=== PATIENT | male | born 1965 | race Caucasian/White ===

== ENCOUNTER 2017-01-13 12:30 | Outpatient (CLI) ==
--- NOTE | 2017-01-13 13:56 | DI ---
EXAM: Chest two view, frontal and lateral views. HISTORY: Cough. Bronchitis. Flu-like symptoms. COMPARISON: None available. FINDINGS: The heart size is normal. There is no pulmonary vascular congestion. The lungs are bandar r. No pleural effusion or pneumothorax is seen. No acute osseous abnormality identified. IMPRESSION: No acute cardiopulmonary process.
== END 2017-01-13 12:31 | disposition home or self-care (01) ==
LOC: RAD 12:30
PROVIDERS: ATTEND Family Medicine
DX: R68.89 Other general symptoms and signs (principal); J32.9 Chronic sinusitis, unspecified; J40 Bronchitis, not specified as acute or chronic; D70.1 Agranulocytosis secondary to cancer chemotherapy; C71.1 Malignant neoplasm of frontal lobe

== ENCOUNTER 2017-11-24 07:48 | Outpatient (CLI) | END 2017-11-24 07:49 | disposition left against medical advice (07) | LOC: AMBL 07:48 | PROVIDERS: ATTEND Emergency Medicine | DX: R53.1 Weakness (principal); J11.1 Influenza due to unidentified influenza virus with other respiratory manifestations ==

== ENCOUNTER 2017-12-11 12:04 | Outpatient (CLI) | END 2017-12-11 12:05 | disposition short-term general hospital (02) | LOC: AMBL 12:04 | PROVIDERS: ATTEND Family Medicine | DX: R29.6 Repeated falls (principal); C71.9 Malignant neoplasm of brain, unspecified; F79 Unspecified intellectual disabilities; I10 Essential (primary) hypertension; Z79.899 Other long term (current) drug therapy ==

== ENCOUNTER 2018-06-17 18:31 | Emergency (ER) ==
[2018-06-17 18:38] VITALS: BP 130/85; TEMP 98.6; BMI 30.9
[2018-06-17] MEDS ORDERED: DECADRON 4 MG/ML SDV IM STA (19:30)
[2018-06-17] MEDS ORDERED: BENADRYL PO STA (19:30)
--- NOTE | 2018-06-17 20:40 | ED.PDOC ---
General ED Provider: Dr. JENNIFER PATIÑO Chief Complaint: Rash Stated Complaint: Noted rash all over that is itchy Time Seen by Physician: 19:00 Mode of Arrival: Walk-In Information Source: Patient Primary Care Provider: MARY ANN KIRK Nursing and Triage Documentation Reviewed and Agree: Yes Does patient meet sepsis criteria?: Yes If yes, has appropriate treatment been initiated?: No System Inflammatory Response Syndrome: Not Applicable Sepsis Protocol: For patient's 13 years and over: Temp is 96.8 and below OR 101 and greater Pulse >90 BPM Resp >20/minute Acutely Altered Mental Status Are patient's symptoms suggestive of a new infection, such as: -Pneumonia -Skin, Soft Tissue -Endocarditis -UTI -Bone, Joint Infection -Implantable Device -Acute Abdominal Infection -Wound Infection -Meningitis -Blood Stream Catheter Infection -Unknown Skin Complaint Exam - Skin Rash/Itching Complaint/Exam Onset/Duration: 1 day Symptoms Are: Still present Initial Severity: Moderate Current Severity: Moderate Location: neck, chest, Abdomen, upper and lower extreimites Potential Exposures: Reports: Other (New detergents ) Prior Treatment: nothing Aggravating: Reports: None Alleviating: Reports: None Associated Signs and Symptoms: Denies: Difficulty breathing, Fever, Chills Skin Findings: Present: Pustules, Vesicles, Lesions Differential Diagnoses: Allergic Reaction, Contact Dermatitis, Viral Exanthema Review of Systems - Review Of Systems Constitutional: Reports: No symptoms Eyes: Reports: No symptoms Ears, Nose, Mouth, Throat: Reports: No symptoms Respiratory: Reports: No symptoms Cardiac: Reports: No symptoms GI: Reports: No symptoms : Reports: No symptoms Musculoskeletal: Reports: No symptoms Skin: Reports: Rash Neurological: Reports: No symptoms Endocrine: Reports: No symptoms Hematologic/Lymphatic: Reports: No symptoms All Other Systems: Reviewed and Negative Past Medical History - Past Medical History Previously Healthy: Yes Endocrine: Reports: None Cardiovascular: Reports: Hypertension Respiratory: Reports: None Hematological: Reports: None Gastrointestinal: Reports: None Genitourinary: Reports: None Neuro/Psych: Reports: Seizure Musculoskeletal: Reports: None Cancer: Reports: Other (brain tumor ) - Surgical History General Surgical History: Reports: Other (brain tumor removed 1 yr ago) - Family History Family History: Reports: Unknown - Social History Smoking Status: Never smoker Hx Substance Use: No Alcohol Screening: None Physical Exam - Physical Exam Appearance: Ill-appearing, No pain distress, Well-nourished Ill-appearing: Mild Eyes: BRISSA, EOMI, Conjunctiva clear ENT: Nose normal, Oropharynx normal Neck: Supple Respiratory: Airway patent, Breath sounds clear, Breath sounds equal, Respirations nonlabored Cardiovascular: RRR, Pulses normal, No rub, No murmur GI/: Soft, Nontender, No masses, Bowel sounds normal, No Organomegaly Musculoskeletal: Normal strength, ROM intact, No edema, No calf tenderness Skin: Warm, Dry Neurological: Sensation intact, Motor intact, Reflexes intact, Cranial nerves intact, Alert, Oriented Psychiatric: Affect appropriate, Mood appropriate Critical Care Note - Critical Care Note Total Time (mins): 0 Course - Course Orders, Labs, Meds: Orders Category Date Time Status Dexamethasone 4 mg/ml Inj [Decadron 4 mg/ml Sdv] MEDS 06/17/18 19:30 Discontinued 8 mg IM ONCE STA Diphenhydramine Liquid [Benadryl] MEDS 06/17/18 19:30 Discontinued 50 mg PO ONCE STA Medications Discontinued Medications Generic Name Dose Route Start Last Admin Trade Name Freq PRN Reason Stop Dose Admin Dexamethasone Sodium Phosphate 8 mg 06/17/18 19:30 06/17/18 19:57 Decadron 4 Mg/Ml Sdv IM 06/17/18 19:31 8 mg ONCE STA Administration Diphenhydramine HCl 50 mg 06/17/18 19:30 06/17/18 19:58 Benadryl PO 06/17/18 19:31 50 mg ONCE STA Administration Vital Signs: Temp Pulse Resp BP Pulse Ox 06/17/18 18:31 98.6 F 107 H 20 130/85 95 Departure - Departure Time of Disposition: 20:43 Disposition: HOME SELF-CARE Discharge Problem: Pruritic rash Contact dermatitis Qualifiers: Contact dermatitis type: allergic Contact dermatitis trigger: other chemical product Qualified Code(s): L23.5 - Allergic contact dermatitis due to other chemical products Instructions: Contact Dermatitis (ED) Condition: Stable Pt referred to PMD for follow-up: Yes IPMP verified?: No Additional Instructions: Take medications as prescribed Follow up with PCP in 3 -5 days Prescriptions: Hydroxyzine HCl [Atarax] 25 mg PO TID PRN #30 tablet PRN Reason: Itching Prednisone 20 mg PO DAILYWM #5 tablet Allergies/Adverse Reactions: Allergies No Known Allergies Allergy (Unverified 06/17/18 18:39) Home Medications: Ambulatory Orders Aspirin [Aspirin EC] 81 mg PO DAILY 06/17/18 Captopril 12.5 mg PO BID 06/17/18 Clorazepate Dipotassium [Tranxene T-Tab] 7.5 mg PO TID 06/17/18 Hydroxyzine HCl [Atarax] 25 mg PO TID PRN #30 tablet 06/17/18 Levetiracetam [Keppra] 1,000 mg PO BID 06/17/18 Oxcarbazepine [Trileptal] 150 mg PO TID 06/17/18 Prednisone 20 mg PO DAILYWM #5 tablet 06/17/18 Tiagabine HCl [Gabitril] 4 mg PO DIRECTED 06/17/18
== END 2018-06-17 20:54 | disposition home or self-care (01) ==
LOC: ED 18:31
DX: L23.5 Allergic contact dermatitis due to other chemical products (principal)
CPT/HCPCS: 96372; 99282

== ENCOUNTER 2018-06-19 22:57 | Outpatient (CLI) | END 2018-06-19 23:14 | disposition short-term general hospital (02) | LOC: AMBL 22:57 | PROVIDERS: ATTEND Internal Medicine Geriatric Medicine | DX: R53.1 Weakness (principal); R41.82 Altered mental status, unspecified; R53.83 Other fatigue; W19.XXXA Unspecified fall, initial encounter; Z85.841 Personal history of malignant neoplasm of brain; Z98.890 Other specified postprocedural states ==

== ENCOUNTER 2020-10-03 08:43 | Inpatient (IN) ==
--- NOTE | 2020-10-03 08:49 | ED.PDOC ---
General ED Provider: Dr. NICOL VELA Chief Complaint: Weakness Primary Care Provider: MARY ANN KIRK Sepsis Protocol: For patient's 13 years and over: Temp is 96.8 and below OR 101 and greater Pulse >90 BPM Resp >20/minute Acutely Altered Mental Status Are patient's symptoms suggestive of a new infection, such as: -Pneumonia -Skin, Soft Tissue -Endocarditis -UTI -Bone, Joint Infection -Implantable Device -Acute Abdominal Infection -Wound Infection -Meningitis -Blood Stream Catheter Infection -Unknown Miscellaneous Complaint Exam Physical Examination Complaint/Exam Onset/Duration: one hour Symptoms Are: Still present Timing: Constant Episodes Lasting: Minutes Initial Severity: Moderate Current Severity: Moderate Location: Pt has evidence of contusion on forehead and nose. Fell this am. seizure? Character: Bloody lacertions and contusions forehead and nasal bridge. Aggravating: nothing Alleviating: nothing Associated Signs and Symptoms: pt's speaking "slow" .. hx brain tumor w residual seizure activity. Related History: Reports No other known history Specific Findings: bloody contusions/lacerations forehead, nose. Differential Diagnoses: contusions/lacerations forehead, nose s/p seizure as per patient. [facility] Social History Smoking and tobacco status: Never smoker Physical Exam Physical Exam Appearance: Reports Other Ill-appearing: None Pain Distress: None Eyes: Reports BRISSA, EOMI and Conjunctiva clear ENT: Reports Ears normal, Oropharynx normal and Other Neck: Supple Respiratory: Reports Airway patent, Breath sounds clear and Breath sounds equal Cardiovascular: Reports RRR and Pulses normal GI/: Reports Soft and Bowel sounds hypoactive Musculoskeletal: Reports Limited ROM and Limited strength Skin: Reports Warm, Dry and Pale Neurological: Reports Other Psychiatric: Reports Depressed and Other Course Course Orders, Labs, Meds: Orders Category Date Time Status NPO REMINDER: IMAGING ONCE CARE 10/03/20 08:51 Active COMPREHENSIVE METABOLIC PANEL Stat LAB 10/03/20 09:[address] HEAD W/WO CONTRAST Stat RADS 10/03/20 08:50 Ordered Vital Signs: Temp Pulse Resp BP Pulse Ox 10/03/20 08:45 96.9 F L 103 H 20 97/47 L 97 Discharge Plan Discharge Prescriptions: No Action oxcarbazepine 150 MG tablet 150 mg PO TID RF: 0 tiagabine [Gabitril] 4 MG tablet 4 mg PO DIRECTED RF: 0 aspirin 81 MG tablet,delayed release (DR/EC) 81 mg PO DAILY RF: 0 captopril 12.5 MG tablet 12.5 mg PO BID RF: 0 clorazepate dipotassium [Tranxene T-Tab] 7.5 MG tablet 7.5 mg PO TID RF: 0 levetiracetam [Keppra] 1,000 MG tablet 1,000 mg PO BID RF: 0 prednisone 20 MG tablet 20 mg PO DAILYWM Qty: 5 RF: 0 hydroxyzine HCl 25 MG tablet 25 mg PO TID PRN (Reason: Itching ) Qty: 30 RF: 0 ED Provider: NICOL VELA Physician Progress Note: Pt has hx of surgery to remove brain tumor, two years ago, according to pt. Pt's mentation is slow, but oriented sfs place, his condition, recollection of "feeling funny" before his seizure. Pt suffers from loss of balance, gait difficulty and generalized weakness. His L side is weaker than R. Pt follows up with NeuroSurgeon q 3 months. ENT normal except for dryness, lips cracked, tongue dry. Two contusions w bloody lacerations on forehead and nasal bridge. Steri strips applied. Respirations normal, no abd pain. Sensation normal. Finger-nose: unable. Heel- acuña: unable. Pt's mood and affect: resignation. []
[2020-10-03 09:53] LABS: ALANINE AMINOTRANSFERASE 32.3 U/L (0-50); ALBUMIN 4.49 g/dL (3.5-5.0); ALKALINE PHOSPHATASE 162.2 U/L (38-126); ASPARTATE AMINO TRANSFERASE 134.6 U/L (17-59); BILIRUBIN,TOTAL 0.53 mg/dL (0.2-1.3); BLOOD UREA NITROGEN 28.4 mg/dL (9-20); CALCIUM 8.99 mg/dL (8.4-10.2); CARBON DIOXIDE 22.8 mmol/L (22-30.0); CHLORIDE 100.2 mmol/L (98-107); CREATININE 1.84 mg/dL (0.60-1.10); GLUCOSE 147.7 mg/dL (74-106); POTASSIUM 3.35 mmol/L (3.5-5.1); SODIUM 136.4 mmol/L (134.5-145); TOTAL PROTEIN 8.14 g/dL (6.3-8.2)
--- NOTE | 2020-10-03 10:05 | ED.PDOC ---
General ED Provider: Dr. NICOL VELA Chief Complaint: Weakness Stated Complaint: Fall with head, face injuries. Fall 2/2 dizziness/ dehydration. Time Seen by Physician: 08:43 Mode of Arrival: Stretcher Information Source: Patient and EMT Primary Care Provider: MARY ANN QUINONES Nursing and Triage Documentation Reviewed and Agree: Yes Does patient meet sepsis criteria?: No System Inflammatory Response Syndrome: Not Applicable Sepsis Protocol: For patient's 13 years and over: Temp is 96.8 and below OR 101 and greater Pulse >90 BPM Resp >20/minute Acutely Altered Mental Status Are patient's symptoms suggestive of a new infection, such as: -Pneumonia -Skin, Soft Tissue -Endocarditis -UTI -Bone, Joint Infection -Implantable Device -Acute Abdominal Infection -Wound Infection -Meningitis -Blood Stream Catheter Infection -Unknown Miscellaneous Complaint Exam Physical Examination Complaint/Exam Onset/Duration: one hour prior to ER Symptoms Are: Resolved Timing: Intermittent Episodes Lasting: Minutes Initial Severity: Moderate Current Severity: Moderate Location: forehead, nasal bridge Character: bloody lacerations / contusions 2/2 seizure, fall. Aggravating: nothing Alleviating: nothing Associated Signs and Symptoms: slow verbal responses and mentation 2/2 brain tumor surgery Related History: Reports No other known history Specific Findings: bloody lacerations 2/2 contusions forehead, nasal bridge Differential Diagnoses: contusions, lacerations 2/2 fall s/p seizure activity Review of Systems Review Of Systems Constitutional: Reports Weakness Eyes: Reports No symptoms Ears, Nose, Mouth, Throat: Reports No symptoms Respiratory: Reports No symptoms Cardiac: Reports No symptoms GI: Reports No symptoms : Reports No symptoms Musculoskeletal: Reports No symptoms Skin: Reports Other Neurological: Reports Weakness Endocrine: Reports No symptoms Hematologic/Lymphatic: Reports No symptoms All Other Systems: Reviewed and Negative [facility] Social History Smoking and tobacco status: Never smoker Physical Exam Physical Exam Appearance: Reports Other Ill-appearing: None Pain Distress: None Eyes: Reports BRISSA and EOMI ENT: Reports Ears normal and Other Neck: Supple Respiratory: Reports Airway patent and Breath sounds clear Cardiovascular: Reports RRR GI/: Reports Soft, Nontender and Bowel sounds hypoactive Musculoskeletal: Reports Limited ROM and Limited strength Skin: Reports Warm, Dry and Pale Neurological: Reports Sensation intact and Oriented Psychiatric: Reports Other Interpretation Radiology Interpretation Radiology Interpretation By: Radiologist Radiology Results: No acute changes Exam Interpreted: CT Scan Xray Comments: frontal lobe encephalomalacia 2/2 tumor surgery. No acute changes. No bleed Physician Notification Case Discussed Physician Notified: Dr. Quinones Time of Notification: 11:30 Critical Care Note Critical Care Note Total Critical Care Time (mins): 0 Course Course Hematology/Chemistry: 10/03/20 14:05 10/03/20 14:05 Orders, Labs, Meds: Lab Review 10/03/20 10/03/20 10/03/20 09:30 12:11 13:13 WBC 4.16 L RBC 4.01 L Hgb 13.8 L Hct 38.1 L MCV 95.0 H MCH 34.4 H MCHC 36.2 H RDW Coeff of [place] 11.8 Plt Count 205 Immature Gran % (Auto) 0.5 Neut % (Auto) 81.2 H Lymph % (Auto) 9.6 L Cottle % (Auto) 8.7 Eos % (Auto) 0.0 Baso % (Auto) 0.0 Neut # (Auto) 3.4 Lymph # (Auto) 0.4 L Cottle # (Auto) 0.4 Eos # (Auto) 0.0 Baso # (Auto) 0.0 Immature Gran # (Auto) 0.0 Sodium 136.4 Potassium 3.35 L Chloride 100.2 Carbon Dioxide 22.8 Anion Gap 16.75 BUN 28.4 H Creatinine 1.84 H Estimated GFR (MDRD) 39.00 BUN/Creatinine Ratio 15.43 Glucose 147.7 H Calcium 8.99 Total Bilirubin 0.53 AST 134.6 H ALT 32.3 Alkaline Phosphatase 162.2 H Total Protein 8.14 Albumin 4.49 Globulin 3.65 Albumin/Globulin Ratio 1.23 Stl Occult Blood (IFOB) Negative Stool Occult Blood #2 No specimen received Stool Occult Blood #3 No specimen received 10/03/20 10/03/20 14:05 14:05 WBC 3.69 L RBC 4.06 L Hgb 13.7 L Hct 38.6 L MCV 95.1 H MCH 33.7 H MCHC 35.5 H RDW Coeff of [place] 11.9 Plt Count 217 Immature Gran % (Auto) 0.3 Neut % (Auto) 80.9 H Lymph % (Auto) 8.7 L Cottle % (Auto) 9.8 Eos % (Auto) 0.0 Baso % (Auto) 0.3 Neut # (Auto) 3.0 Lymph # (Auto) 0.3 L Cottle # (Auto) 0.4 Eos # (Auto) 0.0 Baso # (Auto) 0.0 Immature Gran # (Auto) 0.0 Sodium 134.7 Potassium 3.12 L Chloride 101.8 Carbon Dioxide 21.6 L Anion Gap 14.42 BUN 27.8 H Creatinine 1.40 H Estimated GFR (MDRD) 53.00 BUN/Creatinine Ratio 19.85 Glucose 131.4 H Calcium 8.36 L Total Bilirubin 0.43 AST 151.5 H ALT 31.7 Alkaline Phosphatase 138.8 H Total Protein 7.46 Albumin 4.03 Globulin 3.43 Albumin/Globulin Ratio 1.17 Stl Occult Blood (IFOB) Stool Occult Blood #2 Stool Occult Blood #3 Orders Category Date Time Status ADMIT PATIENT INPATIENT .TO [facility] (NON-MONITORED ADMISSION 10/03/20 14:52 Active BED) NPO REMINDER: IMAGING ONCE CARE 10/03/20 08:51 Active CBC W/ AUTO DIFF Stat LAB 10/03/20 12:11 Completed CBC W/ AUTO DIFF Stat LAB 10/03/20 14:05 Completed COMPREHENSIVE METABOLIC PANEL Stat LAB 10/03/20 09:30 Completed COMPREHENSIVE METABOLIC PANEL Stat LAB 10/03/20 14:05 Completed OCCULT BLOOD, STOOL Stat LAB 10/03/20 13:13 Completed Potassium Chloride [Potassium Chloride 10 Meq/100 ml MEDS 10/03/20 11:08 Discontinued Premix] 10 meq in 100 ml IV ONCE Sodium Chloride 0.9% [Sodium Chloride] 1,000 ml MEDS 10/03/20 11:[address] HEAD W/O CONTRAST Stat RADS 10/03/20 10:[address] HIP RIGHT WITHOUT CONTRAST Stat RADS 10/03/20 13:17 Completed KNEE, RIGHT 4 VIEWS Stat RADS 10/03/20 13:15 Completed Medications Discontinued Medications Generic Name Dose Route Start Last Admin Trade Name Freq PRN Reason Stop Dose Admin Sodium Chloride 1,000 mls @ 1,000 mls/hr 10/03/20 11:06 10/03/20 11:42 Sodium Chloride IV 10/03/20 12:05 500 mls/hr BOLUS STA Administration Potassium Chloride 10 meq in 100 mls @ 100 mls/hr 10/03/20 11:08 10/03/20 11:41 Potassium Chloride 10 Meq/100 Ml Premix IV 10/03/20 12:07 100 mls/hr ONCE STA Administration Vital Signs: Temp Pulse Resp BP Pulse Ox 10/03/20 08:45 96.9 F L 103 H 20 97/47 L 97 Discharge Plan Discharge Patient Disposition: ADMITTED INPATIENT Discharge Problem: Admitted with dehydration Hypotension Qualifiers: Hypotension type: hypotension due to hypovolemia Qualified Code(s): I95.89 - Other hypotension Fall as cause of accidental injury in home as place of occurrence Qualifiers: Encounter type: initial encounter Qualified Code(s): W19.XXXA - Unspecified fall, initial encounter ED Provider: NICOL VELA Condition: Stable Physician Progress Note: 0900:Mentation and speaking slow, 2/2 brain tumor surgery, which pt states he underwent 2 years ago. ENT: dryness. Lacerations and contusions nasal bridge and forehead. pulses weak, RRR, respirations nl, not labored, chest expansion normal bilaterally. abd soft, nontender, no rebound. Pt unable to heel-acuña or finter-nose. EMS reports LLE weaker than RLE LAB: GFR 39 (cut off: 30) Head CT w contrast cancelled. CT: encephalomalacia w/w brain tumor surgery. No acute changes. No bleed. Orthostatic VS: Supine: HR 98, 115/91; Sitting HR 113, 97/78; Standing Pt feels faint, no BP recorded. 98% room air. 11:[address] Quinones. Will work up pt for GI bleed. IVF NaCl w 10 mEq KCl ordered since Creatinine, BUN and Glucose elevated and Potassium low. Plan to reorder CMP after IVF. Rectal exam: no visible blood. Sample to lab. 12:50 Pt more alert. 50% IVF has run in. 13:15 Pt much more alert and communicative. Dad in room and states so, as well. 14:[address] Quinones, who is admitting pt to his service. []
--- NOTE | 2020-10-03 10:44 | CT ---
EXAM: CT head without contrast. HISTORY: Seizure. Fall. Previous brain tumor resection. COMPARISON: None available. TECHNIQUE: Multiple axial images of the brain were obtained from the skull base through the vertex w ithout intravenous contrast. Multiplanar reformats were provided. FINDINGS: There is no intracranial hemorrhage or extraaxial collection. Right parietal craniotomy changes noted with encephalomalacia in the underlying right frontal vertex. The durán-white different iation is maintained without evidence for acute large vascular territory infarction. There are areas of periventricular and subcortical white matter low attenuation. The cortical sulci and cerebral ve ntricles are symmetrically enlarged. The basal cisterns are well visualized. There is no hydrocepha madhu, mass effect, or midline shift. The paranasal sinuses and mastoid air cells are clear. The calv arium is intact. IMPRESSION: 1. No acute intracranial abnormality. 2. Previous right craniotomy and right frontal lobe encephalomalacia. 3. Chronic small vessel ischemic changes and atrophy.
[2020-10-03] MEDS ORDERED: SODIUM CHLORIDE 1,000 ML IV STA (11:06)
[2020-10-03] MEDS ORDERED: POTASSIUM CHLORIDE 10 MEQ/100 ML PREMIX 10 MEQ/100 ML BAG IV STA ×2 (11:08→15:38)
[2020-10-03 12:16] LABS: HEMATOCRIT 38.1 % (42.0-52.0); HEMOGLOBIN 13.8 g/dl (14.0-18.0); IMMATURE GRANULOCYTE % (AUTO) 0.5 % (0.0-5.0); LYMPHOCYTES # (AUTO) 0.4 K/uL (0.60-3.4); LYMPHOCYTES % (AUTO) 9.6 (10.0-50.0); MEAN CORPUSCULAR HEMOGLOBIN 34.4 pg (27.0-31.0); MEAN CORPUSCULAR HGB CONC 36.2 (31.8-35.4); MONOCYTES # (AUTO) 0.4 K/uL (0.4-2.0); MONOCYTES % (AUTO) 8.7 (0-10); NEUTROPHILS # (AUTO) 3.4 K/ul (2.0-6.9); NEUTROPHILS % (AUTO) 81.2 % (42.2-75.2); PLATELET COUNT 205 10^3/uL (140-440); RDW COEFFICIENT OF VARIATION 11.8 % (11.6-14.8); RED BLOOD COUNT 4.01 10^6/ul (4.70-6.10); WHITE BLOOD COUNT 4.16 K/ul (4.2-10.2)
--- NOTE | 2020-10-03 13:43 | DI ---
EXAM: RIGHT KNEE. HISTORY: Fall, knee abrasion and pain. FINDINGS: Right knee four view. No fracture or dislocation is seen. 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 No joint effusion. No soft tissue radiopaque foreign body. IMPRESSION: 1. No fracture or dislocation. Arthritic changes.
--- NOTE | 2020-10-03 13:56 | CT ---
EXAM: CT right hip without contrast. HISTORY: Initial presentation for right hip pain following a fall. COMPARISON: None available. TECHNIQUE: Multiple axial images of the right hip were obtained without intravenous contrast. Image s were reformatted in the coronal and sagittal plane. FINDINGS: Bone mineralization is normal. No fracture or dislocation identified. Joint space is maintained. O sseous destruction detected. There is mild lateral subcutaneous edema in the right thigh. No fluid collection is seen. Limited images of the lower pelvis are unremarkable. Atherosclerotic calcifications are noted. IMPRESSION: No fracture or dislocation.
[2020-10-03 14:06] LABS: OCCULT BLOOD SAMPLE 1 NEGATIVE (NEGATIVE); OCCULT BLOOD SAMPLE 2 NO SPECIMEN RECEIVED (NEGATIVE); OCCULT BLOOD SAMPLE 3 NO SPECIMEN RECEIVED (NEGATIVE)
[2020-10-03 14:13] LABS: BASOPHILS % (AUTO) 0.3 % (0.0-3.0); HEMATOCRIT 38.6 % (42.0-52.0); HEMOGLOBIN 13.7 g/dl (14.0-18.0); IMMATURE GRANULOCYTE % (AUTO) 0.3 % (0.0-5.0); LYMPHOCYTES # (AUTO) 0.3 K/uL (0.60-3.4); LYMPHOCYTES % (AUTO) 8.7 (10.0-50.0); MEAN CORPUSCULAR HEMOGLOBIN 33.7 pg (27.0-31.0); MEAN CORPUSCULAR HGB CONC 35.5 (31.8-35.4); MEAN CORPUSCULAR VOLUME 95.1 fl (80.0-94.0); MONOCYTES # (AUTO) 0.4 K/uL (0.4-2.0); MONOCYTES % (AUTO) 9.8 (0-10); NEUTROPHILS % (AUTO) 80.9 % (42.2-75.2); PLATELET COUNT 217 10^3/uL (140-440); RDW COEFFICIENT OF VARIATION 11.9 % (11.6-14.8); RED BLOOD COUNT 4.06 10^6/ul (4.70-6.10); WHITE BLOOD COUNT 3.69 K/ul (4.2-10.2)
[2020-10-03 14:26] LABS: ALANINE AMINOTRANSFERASE 31.7 U/L (0-50); ALBUMIN 4.03 g/dL (3.5-5.0); ALKALINE PHOSPHATASE 138.8 U/L (38-126); ASPARTATE AMINO TRANSFERASE 151.5 U/L (17-59); BILIRUBIN,TOTAL 0.43 mg/dL (0.2-1.3); BLOOD UREA NITROGEN 27.8 mg/dL (9-20); CALCIUM 8.36 mg/dL (8.4-10.2); CARBON DIOXIDE 21.6 mmol/L (22-30.0); CHLORIDE 101.8 mmol/L (98-107); CREATININE 1.4 mg/dL (0.60-1.10); GLUCOSE 131.4 mg/dL (74-106); POTASSIUM 3.12 mmol/L (3.5-5.1); SODIUM 134.7 mmol/L (134.5-145); TOTAL PROTEIN 7.46 g/dL (6.3-8.2)
[2020-10-03 16:49] VITALS: BMI 32.7
[2020-10-03] MEDS: SODIUM CHLORIDE 1,000 ML IV SCH (17:40)
[2020-10-03] MEDS: KEPPRA PO SCH (21:04)
[2020-10-03] MEDS: MICRO-K CAP PO SCH (21:05)
[2020-10-03] MEDS: TRILEPTAL PO SCH (21:05)
[2020-10-04] MEDS: SODIUM CHLORIDE 1,000 ML IV SCH ×2 (03:54→14:19)
[2020-10-04 07:55] LABS: BLOOD UREA NITROGEN 20.4 mg/dL (9-20); CALCIUM 7.92 mg/dL (8.4-10.2); CARBON DIOXIDE 24.5 mmol/L (22-30.0); CHLORIDE 101.4 mmol/L (98-107); CREATININE 0.97 mg/dL (0.60-1.10); GLUCOSE 104.1 mg/dL (74-106); POTASSIUM 2.97 mmol/L (3.5-5.1); SODIUM 133.3 mmol/L (134.5-145)
[2020-10-04 08:01] LABS: EOSINOPHILS # (AUTO) 0.1 K/ul (0.0-0.7); EOSINOPHILS % (AUTO) 1.9 % (0.0-7.0); HEMATOCRIT 33.7 % (42.0-52.0); HEMOGLOBIN 11.8 g/dl (14.0-18.0); IMMATURE GRANULOCYTE % (AUTO) 0.4 % (0.0-5.0); LYMPHOCYTES # (AUTO) 0.3 K/uL (0.60-3.4); LYMPHOCYTES % (AUTO) 12.2 (10.0-50.0); MEAN CORPUSCULAR HEMOGLOBIN 33.7 pg (27.0-31.0); MEAN CORPUSCULAR VOLUME 96.3 fl (80.0-94.0); MONOCYTES # (AUTO) 0.3 K/uL (0.4-2.0); MONOCYTES % (AUTO) 9.5 (0-10); PLATELET COUNT 193 10^3/uL (140-440); RDW COEFFICIENT OF VARIATION 11.9 % (11.6-14.8); WHITE BLOOD COUNT 2.63 K/ul (4.2-10.2)
[2020-10-04] MEDS: TRILEPTAL PO SCH ×3 (08:28→20:24)
[2020-10-04] MEDS: MICRO-K CAP PO SCH ×3 (08:29→22:23)
[2020-10-04] MEDS: KEPPRA PO SCH ×2 (08:29→20:24)
[2020-10-04] MEDS: TIAGABINE 4 MG PO SCH ×4 (08:30→20:25)
[2020-10-04] MEDS: SILVADENE CREAM TP SCH ×2 (15:16→20:26)
[2020-10-04 16:39] LABS: BILIRUBIN,URINE Negative (NEGATIVE); CLARITY,URINE Clear (CLEAR); COLOR,URINE Yellow (YELLOW); GLUCOSE, URINE (UA) Negative (NEGATIVE); KETONES,URINE Trace (NEGATIVE); LEUKOCYTE ESTERASE ,URINE Negative (NEGATIVE); NITRITE,URINE Negative (NEGATIVE); PH,URINE 5.5 (5-9); PROTEIN,URINE 2+ (NEGATIVE); URINE, BLOOD 2+ (NEGATIVE)
[2020-10-04 16:44] LABS: AMORPHOUS SEDIMENT,UR 1+ (NOT PRESENT); BACTERIA,URINE TRACE (NOT PRESENT); MUCUS,URINE TRACE (NOT PRESENT); RENAL EPITHELIAL CELLS,URINE 0-2 (NOT PRESENT); SQUAMOUS EPITHELIAL CELL,UR 0-2 (0-5); URINE WBC, MICROSCOPIC 0-2 (0-2)
[2020-10-04] MEDS: SODIUM CHLORIDE 0.9%-KCL 20 MEQ 1,000 ML IV SCH (22:22)
[2020-10-05 05:50] LABS: BLOOD UREA NITROGEN 16.5 mg/dL (9-20); CALCIUM 8.14 mg/dL (8.4-10.2); CHLORIDE 102.3 mmol/L (98-107); GLUCOSE 105.2 mg/dL (74-106); POTASSIUM 3.66 mmol/L (3.5-5.1); SODIUM 133.7 mmol/L (134.5-145)
[2020-10-05 06:57] LABS: FOLATE > 20.00 ng/mL
[2020-10-05] MEDS: MICRO-K CAP PO SCH ×2 (08:21→17:08)
[2020-10-05] MEDS: KEPPRA PO SCH ×2 (08:21→20:40)
[2020-10-05] MEDS: SILVADENE CREAM TP SCH ×2 (08:22→20:41)
[2020-10-05] MEDS: TIAGABINE 4 MG PO SCH ×3 (08:22→20:43)
[2020-10-05] MEDS: TRILEPTAL PO SCH ×3 (09:29→20:40)
[2020-10-05] MEDS: SODIUM CHLORIDE 0.9%-KCL 20 MEQ 1,000 ML IV SCH (18:16)
[2020-10-06 05:51] LABS: BLOOD UREA NITROGEN 14.2 mg/dL (9-20); CALCIUM 8.1 mg/dL (8.4-10.2); CARBON DIOXIDE 24.5 mmol/L (22-30.0); CHLORIDE 104.4 mmol/L (98-107); CREATININE 0.87 mg/dL (0.60-1.10); GLUCOSE 97.1 mg/dL (74-106); POTASSIUM 3.53 mmol/L (3.5-5.1); SODIUM 135.3 mmol/L (134.5-145)
[2020-10-06] MEDS: TRILEPTAL PO SCH ×3 (10:12→21:05)
[2020-10-06] MEDS: KEPPRA PO SCH ×2 (10:12→21:05)
[2020-10-06] MEDS: MICRO-K CAP PO SCH ×2 (10:13→17:02)
[2020-10-06] MEDS: SILVADENE CREAM TP SCH ×2 (10:14→21:09)
[2020-10-06] MEDS: TIAGABINE 4 MG PO SCH ×3 (10:33→21:07)
--- NOTE | 2020-10-06 11:49 | RS.PTINEVL ---
Subjective - Patient information Date of Evaluation: 10/06/20 Date of Arrival on Unit: 10/03/20 Admitted From:: Home Diagnosis: falls at home, gait difficulty, impaired balance, muscle weakness Usual Living Arrangement: With Parent Living Arrangement Comments: lives with parents, father cares for him and takes care of the mother who has dementia. Home Environment: House, Stairs (few), Rail Medical History: Hypertension, Arthritis, Cancer (brain tumors) Medical History Comments:: seizures LATEX ALLERGY?: No Surgical History Comments:: R craniotomy Medications: see chart Subjective Information/ Patient Comments:: pt's father states pt fell and had to call ambulance service to get him up and then when he went in on Tuesday am to check on him he was in the floor at the foot of his bed. - Level of function Abilities prior to this admission: pt amb independently without AD, difficulty amb longer distances. pt could do most ADL's with only occasional assist from father. Current Level of Function: Partially Dependent Current Equipment Used at Home: rollator, shower chair Interventions - Objective Patient Orientation: Person, Place Current Interventions: IV's, Telemetry Observation: pt with dressings in place to B knees and R elbow due to abrasions from fall. Range of Motion - ROM Right Upper Extremity AROM: Slight limitation Left Upper Extremity AROM: Slight limitation (limited AROM Shld flex, PROM WFL's) Right Lower Extremity AROM: WFL's Left Lower Extremity AROM: WFL's Muscle Strength - Muscle Strength Right Upper Extremity Strength: Mild Weakness (shld flex 3-/5, elbow flex/ext 4/5, decreased supervisor sandblaster) Left Upper Extremity Strength: Mild Weakness (L shld flex 3/5, elbow flex/ext 4/5, decreased supervisor sandblaster) Right Lower Extremity Strength: Mild Weakness (hip flex 3+/5, knee flex/ext 4- /5, ankle DF/PF 4/5) Left Lower Extremity Strength: Mild Weakness (hip flex 3+/5, knee flex/ext 4-/5, ankle DF/PF 4/5) Sensation - Sensation Right Upper Extremity Sensation: Intact/Normal Left Upper Extremity Sensation: Intact/Normal Right Lower Extremity Sensation: Intact/Normal Left Lower Extremity Sensation: Impaired (pt reports decreased sensation L foot.) Palpation Palpation Findings: None/Normal Balance - Sitting Balance and Reactions Static Sitting Balance: Fair Dynamic Sitting Balance: Poor Sitting Equilibrium Reactions: Delayed Left, Delayed Right Sitting Protective Reactions: Delayed Left, Delayed Right - Standing Balance and Reactions Static Standing Balance: Poor Dynamic Standing Balance: Poor Standing Equilibrium Reactions: Delayed Left, Delayed Right Standing Protective Reactions: Delayed Left, Delayed Right Functional Mobility - Bed Mobility Rolling R/L: Mod Assist Supine to Sit: Mod Assist, 1 person assist - Transfers Sit to Stand: Mod Assist, 1 person assist Stand to Sit: Min Assist, 1 person assist - Safety Awareness Safety Awareness: Poor LITA INDEX SCORE: n/a Ambulation - Ambulation Assistive Device Used: Rolling Walker Orthotic/Prosthetic Device: No Distance: 60ft Assistance needed with Ambulation: Min Assist, 1 person assist Gait Deviations: Forward posture, Short stride, Deviates from path Ambulation Comments: pt amb with increased lat sway Factors Affecting Ambulation: Decreased Balance, Weakness, Decreased Safety, Cognitive Status, Limited Endurance, Limited Sensation Treatment time - Time with patient Length of Evaluation: 24 Total treatment time: 37 Patient Education - Education Patient Education: Home Exercise Program, Education of Plan of Care Teaching Recipient: Patient, Family Teaching Methods: Discussion Comments: Discussion with pt and pt's father as well as case supervisor regarding dc plans. Recommend pt received HHPT after dc for home safety, strengthening and gait training. Feel pt would benefit from rolling walker instead of rollator due to rollator is harder for pt to control. Father asked about scooter, however I told him to speak with MD, I do not feel pt would qualify for scooter since he is ambulatory. Assessment - Assessment Problem List:: Decreased level of function, Requires training/education, Decreased safety/Risk of falls, Weakness, Cognitive status limits abilities Rehab Potential: Good Further Therapy Indicated?: Yes Candidate for Swing Bed for Therapy Services?: Feel pt would benefit from home health PT/OT after dc from hospital. Evaluation Complexity: HISTORY: Medium (HTN, brain tumors, seizures, falls), EXAM OF BODY SYSTEMS: Medium (balance, strength, gait , safety), CLINICAL PRESENTATION: Medium, CLINICAL DECISION MAKING: Medium Patient's Goal(s): pt's father's goal is for pt to be as independent as possible. Short Term Goals GOAL #1: pt demonstrate rolling with min x 1. Goal to be met by: 10/08/20 GOAL #2: Transfer sup to/from sit min x 1. Goal to be met by: 10/08/20 GOAL #3: sit to/from stand min x 1 Goal to be met by: 10/08/20 GOAL #4: pt amb 75ft with rwx with CGA with no LOB Goal to be met by: 10/08/20 GOAL #5: pt demonstrate dyn balance fair - Goal to be met by: 10/08/20 Detention Goals GOAL #1: pt transfer sup to/from sit to/from stand CGA Goal to be met by: 10/10/20 GOAL #2: pt amb with rwx with CG to SBA functional distances Goal to be met by: 10/10/20 GOAL #3: Improve dyn stand balance fair Goal to be met by: 10/10/20 Plan Frequency of Treatment: 1-2 X day, as tolerated Duration of Treatment: 5 days Anticipated Discharge Destination: Home (Feel pt would benefit from home health PT) Treatment Diagnosis (ICD 10 Codes): R 29.6 falls. R 26.2 difficulty walking. R 26.81 impaired balance. M62.81 weakness Has the Physician been added for Co-signature?: Yes
--- NOTE | 2020-10-06 14:48 | MRI ---
EXAM: MRI brain with and without contrast. Date: October 06, 2020 COMPARISON: CT brain 10/03/2020 HISTORY: Increased left-sided weakness. Slurred speech. Brain tumor removal in 2016. Recurrence of tumor into 1019 which was removed. Patient now has seizures. TECHNIQUE: Routine MR images of the brain were obtained before and after the intravenous administrat ion of 15 mL of Dotarem via the left antecubital IV. FINDINGS: There are right frontal craniotomy changes with underlying encephalomalacia/resection cavi ty of the right frontal lobe. There is confluent FLAIR hyperintense signal abnormality in the right frontal lobe deep to the craniotomy, which is indeterminate. No abnormal enhancement is identified. No intracranial mass, mass effect, hemorrhage, or abnormal extra-axial fluid collection. The ventri cles and subarachnoid spaces are moderately enlarged. No acute infarct on diffusion weighted imaging . No white matter signal abnormalities. There is a 3 x 3 mm nonenhancing round signal abnormality i n the left side of the pituitary gland on postcontrast coronal image number 11. No pineal, or cereb ellopontine angle lesion seen. The craniocervical junction appears normal. Visualized orbital struc tures are normal. There is a small mucous retention cyst in the right maxillary sinus. No fluid in t he middle ear cavities or mastoid air cells. IMPRESSION: 1. Confluent FLAIR hyperintense signal abnormality in the right frontal lobe deep to the craniotomy and around the resection cavity. This may represent post-treatment changes. Residual malignancy is not excluded and follow-up MRI brain studies recommended. 2. Possible 3 x 3 mm pituitary microadenoma or pituitary cyst in the left-sided pituitary gland. Re commend a dedicated MRI of the sella for further characterization.
[2020-10-07] MEDS: KEPPRA PO SCH (09:21)
[2020-10-07] MEDS: TIAGABINE 4 MG PO SCH ×2 (09:21→11:43)
[2020-10-07] MEDS: MICRO-K CAP PO SCH ×2 (09:22→16:39)
[2020-10-07] MEDS: TRILEPTAL PO SCH ×2 (09:22→15:40)
[2020-10-07] MEDS: SILVADENE CREAM TP SCH (09:25)
[2020-10-07 15:22] VITALS: BP 125/90; TEMP 98.1
== END 2020-10-07 19:00 | disposition home health service (06) | DRG 316 ==
LOC: MEDSURG A 08:43 → ED 08:43 → OBSVTOIN 15:09 → MEDSURG A 16:15
PROVIDERS: ADMIT Family Medicine; ATTEND Family Medicine
DX: R79.89 Other specified abnormal findings of blood chemistry; I95.9 Hypotension, unspecified; S09.93XA Unspecified injury of face, initial encounter; R53.1 Weakness; S50.312A Abrasion of left elbow, initial encounter; E87.6 Hypokalemia; R42 Dizziness and giddiness; S50.311A Abrasion of right elbow, initial encounter

== ENCOUNTER 2023-01-26 08:39 | Inpatient (IN) ==
--- NOTE | 2023-01-26 08:44 | ED.PDOC ---
General ED Provider: Dr. RADHA HURT MD Chief Complaint: Fall Stated Complaint: Patient has a history of falls at home. He is brought to the ED after suffering another fall this morning. He denies injury. Patient did strike his head but denies LOC. He was seen yesterday in the ED for bronchitis and started on cephalexin. His primary complaint is generalized weakness. Time Seen by Provider: 01/26/23 08:43 Mode of Arrival: Walk-In Information Source: Patient Primary Care Provider: MARY ANN QUINONES Nursing and Triage Documentation Reviewed and Agree: Yes Does patient meet sepsis criteria?: No System Inflammatory Response Syndrome: Not Applicable Sepsis Protocol: For patient's 13 years and over: Temp is 96.8 and below OR 101 and greater Pulse >90 BPM Resp >20/minute Acutely Altered Mental Status Are patient's symptoms suggestive of a new infection, such as: -Pneumonia -Skin, Soft Tissue -Endocarditis -UTI -Bone, Joint Infection -Implantable Device -Acute Abdominal Infection -Wound Infection -Meningitis -Blood Stream Catheter Infection -Unknown Review of Systems Review Of Systems Constitutional: Reports Weakness Eyes: Reports No symptoms Ears, Nose, Mouth, Throat: Reports No symptoms Respiratory: Reports Cough Cardiac: Reports No symptoms GI: Reports No symptoms : Reports No symptoms Musculoskeletal: Reports No symptoms Skin: Reports No symptoms Neurological: Reports No symptoms Endocrine: Reports No symptoms Hematologic/Lymphatic: Reports No symptoms All Other Systems: Reviewed and Negative [facility] Medical History (Updated 01/26/23 @ 10:13 by RADHA HURT MD) Brain cancer Brain tumor Falls Grand mal seizure status Hypertension Measles Family History FATHER Diabetes Social History Smoking and tobacco status: Never smoker Surgical History H/O craniotomy Physical Exam Physical Exam Appearance: Reports No pain distress, Well-nourished and Other (Patient is large in stature. He is alert and in NAD. Oriented. Superficial forehead abrasion. Chronically ill appearing. He is poorly kempt and smells of urine.) Ill-appearing: Moderate (chronically) Pain Distress: None Eyes: Reports BRISSA and EOMI ENT: Reports Nose normal and Oropharynx normal Neck: Supple Respiratory: Reports Airway patent, Breath sounds clear and Breath sounds equal Cardiovascular: Reports RRR, No rub and No murmur GI/: Reports Soft, Nontender, No masses and Bowel sounds normal Musculoskeletal: Reports ROM intact, No edema and Other (Superficial abrasions both knees.) Skin: Reports Warm and Dry Neurological: Reports Motor intact, Alert, Oriented and Other (Cognition is slowed.) Psychiatric: Reports Affect appropriate and Mood appropriate Interpretation Radiology Interpretation Radiology Interpretation By: Radiologist Exam Interpreted: CT Scan (no acute intracranial changes, postsurgical changes unchanged from 2019) Physician Notification Case Discussed Physician Notified: Dr Quinones Time of Notification: 11:13 Comments: Patient to be admitted to Dr Quinones Critical Care Note Critical Care Note Total Critical Care Time (mins): 0 Course Course Hematology/Chemistry: 01/26/23 09:01 01/26/23 09:01 Orders, Labs, Meds: Lab Review 01/26/23 01/26/23 01/26/23 09:01 09:01 09:44 WBC 2.91 L RBC 4.15 L Hgb 13.6 L Hct 39.0 L MCV 94.0 MCH 32.8 H MCHC 34.9 RDW Coeff of [place] 11.6 Plt Count 183 Immature Gran % (Auto) 0.0 Neut % (Auto) 76.3 H Lymph % (Auto) 11.0 [place] % (Auto) 12.7 H Eos % (Auto) 0.0 Baso % (Auto) 0.0 Neut # (Auto) 2.2 Lymph # (Auto) 0.3 L [place] # (Auto) 0.4 Eos # (Auto) 0.0 Baso # (Auto) 0.0 Immature Gran # (Auto) 0.0 Sodium 134.3 L Potassium 3.37 L Chloride 99.3 Carbon Dioxide 27.1 Anion Gap 11.27 BUN 17.7 Creatinine 1.27 H Estimated GFR (MDRD) 59.00 BUN/Creatinine Ratio 13.93 Glucose 108.7 H Calcium 8.59 Total Bilirubin 0.58 AST 65.1 H ALT 32.5 Alkaline Phosphatase 130.5 H Total Protein 9.18 H Albumin 4.46 Globulin 4.72 Albumin/Globulin Ratio 0.94 TSH 1.350 Urine Color Dark Urine Clarity Clear Urine pH 5.5 Ur Specific [place] 1.020 Urine Protein 2+ H Urine Glucose (UA) Negative Urine Ketones 1+ H Urine Blood 3+ H Urine Nitrite Negative Urine Bilirubin Negative Urine Urobilinogen 0.2 Ur Leukocyte Esterase Negative Urine Microscopic RBC 10-20 Urine Microscopic WBC 0-2 Ur Squamous Epith Cells Not present Ur Renal Epithelial Cell 0-2 Hyaline Casts 0-2 Orders Category Date Time Status CBC W/ AUTO DIFF Stat LAB 01/26/23 09:01 Completed CMP [COMPREHENSIVE METABOLIC PANEL] Stat LAB 01/26/23 09:01 Completed COVID [SARS COV-2 RNA RAPID MIKI] Stat LAB 01/26/23 Ordered TSH [THYROID STIMULATING HORMONE] Stat LAB 01/26/23 09:01 Completed URINALYSIS C & S IF INDICATED Stat LAB 01/26/23 09:44 Completed Potassium Chloride [K-Dur] MEDS 01/26/23 10:12 Discontinued 40 meq PO ONCE STA CT HEAD W/O CONTRAST Stat RADS 01/26/23 08:52 Completed Medications Discontinued Medications Generic Name Dose Route Start Last Admin Trade Name Freq PRN Reason Stop Dose Admin Potassium Chloride 40 meq 01/26/23 10:12 01/26/23 10:22 Potassium Chloride 20 Meq Tab PO 01/26/23 10:13 40 meq ONCE STA Administration Vital Signs: Temp Pulse Resp BP Pulse Ox 01/26/23 08:40 98.7 F 98 20 138/89 98 Discharge Plan Discharge Patient Disposition: ADMITTED INPATIENT Discharge Problem: Frequent falls, Generalized weakness, Acute bronchitis, Unable to care for self, Acute hypokalemia Prescriptions: No Action atorvastatin 40 mg Tablet 40 mg PO DAILY tiagabine 4 mg Tablet 12 mg PO BID tiagabine 4 mg Tablet 8 mg PO 1200 Rx Instructions: take at noon potassium chloride 10 mEq Tablet Extended Release 10 meq PO BID captopril 50 mg tablet 25 mg PO BID clorazepate dipotassium 7.5 mg tablet 7.5 mg PO TID Did you review [place] [employer] for ALL controlled substances?: Not Applicable ED Provider: RADHA HURT Condition: Fair Physician Progress Note: []
[2023-01-26 09:05] LABS: HEMOGLOBIN 13.6 g/dl (14.0-18.0); LYMPHOCYTES # (AUTO) 0.3 K/uL (0.60-3.4); MEAN CORPUSCULAR HEMOGLOBIN 32.8 pg (27.0-31.0); MEAN CORPUSCULAR HGB CONC 34.9 (31.8-35.4); MONOCYTES # (AUTO) 0.4 K/uL (0.4-2.0); MONOCYTES % (AUTO) 12.7 (0-10); NEUTROPHILS # (AUTO) 2.2 K/ul (2.0-6.9); NEUTROPHILS % (AUTO) 76.3 % (42.2-75.2); PLATELET COUNT 183 10^3/uL (140-440); RDW COEFFICIENT OF VARIATION 11.6 % (11.6-14.8); RED BLOOD COUNT 4.15 10^6/ul (4.70-6.10); WHITE BLOOD COUNT 2.91 K/ul (4.2-10.2)
[2023-01-26 09:17] LABS: ALANINE AMINOTRANSFERASE 32.5 U/L (0-50); ALBUMIN 4.46 g/dL (3.5-5.0); ALKALINE PHOSPHATASE 130.5 U/L (38-126); ASPARTATE AMINO TRANSFERASE 65.1 U/L (17-59); BILIRUBIN,TOTAL 0.58 mg/dL (0.2-1.3); BLOOD UREA NITROGEN 17.7 mg/dL (9-20); CALCIUM 8.59 mg/dL (8.4-10.2); CARBON DIOXIDE 27.1 mmol/L (22-30.0); CHLORIDE 99.3 mmol/L (98-107); CREATININE 1.27 mg/dL (0.60-1.10); GLUCOSE 108.7 mg/dL (74-106); POTASSIUM 3.37 mmol/L (3.5-5.1); SODIUM 134.3 mmol/L (134.5-145); TOTAL PROTEIN 9.18 g/dL (6.3-8.2)
--- NOTE | 2023-01-26 09:29 | CT ---
EXAMINATION: HEAD CT WITHOUT CONTRAST HISTORY: Trauma due to a fall. Headache. History of brain tumor. TECHNIQUE: Noncontrast CT of the brain was performed with images acquired from skull base to vertex. 2-D coronal and sagittal reformatted images were obtained from the axial source images. Contrast Dose: None. CT Dose Reduction Techniques Performed: Yes. COMPARISON: 10/03/2020. FINDINGS: Topogram demonstrates Right superior parietal craniotomy. Intraparenchymal hemorrhage: None. Parenchyma: At the site of previous craniotomy, there is a region of encephalomalacia superiorly in t he frontal parietal region, unchanged. The durán and white matter differentiation is otherwise normal . No mass effect or midline shift. Chronic: Decreased attenuation of the periventricular white matter consistent with microangiopathic i schemic change. Vascular calcifications consistent with arthrosclerosis. Extra-axial spaces and basal cisterns: Normal. Ventricles: Enlargement of the ventricles and subarachnoid spaces consistent with atrophy. Paranasal sinuses and mastoid air cells: Visualized portions of paranasal sinuses are clear. Mastoid air cells are clear. Orbits: Normal visualized portions. Sella/Skull Base: Normal. Other: Scalp and visualized soft tissues are normal. Calvarium is normal. IMPRESSION: 1. Previous right superior parietal craniotomy with a region of encephalomalacia at this site, uncha nged.. 2. Microangiopathic ischemic change and atrophy. 3. Atherosclerosis. 4. No intracranial hemorrhage. 5. Otherwise unremarkable noncontrast CT scan of the brain. 6. No change from 10/03/2020. All CT scans are performed using dose optimization techniques as appropriate to the performed exam an d include at least one of the following: Automated exposure control, adjustment of the mA and/or kV according t o size, and the use of iterative reconstruction technique.
[2023-01-26 09:48] LABS: THYROID STIMULATING HORMONE 1.35 uIU/L (0.465-4.68)
[2023-01-26 09:53] LABS: BILIRUBIN,URINE Negative (NEGATIVE); CLARITY,URINE Clear (CLEAR); COLOR,URINE Dark (YELLOW); GLUCOSE, URINE (UA) Negative (NEGATIVE); KETONES,URINE 1+ (NEGATIVE); LEUKOCYTE ESTERASE ,URINE Negative (NEGATIVE); NITRITE,URINE Negative (NEGATIVE); PH,URINE 5.5 (5-9); PROTEIN,URINE 2+ (NEGATIVE); URINE, BLOOD 3+ (NEGATIVE); UROBILINOGEN,URINE 0.2 (0.2)
[2023-01-26 09:57] LABS: HYALINE CASTS, URINE 0-2 (NOT PRESENT); RENAL EPITHELIAL CELLS,URINE 0-2 (NOT PRESENT); SQUAMOUS EPITHELIAL CELL,UR NOT PRESENT (0-5); URINE WBC, MICROSCOPIC 0-2 (0-2)
[2023-01-26] MEDS ORDERED: K-DUR PO STA (10:12)
[2023-01-26 11:56] LABS: SARS COV-2 RNA RAPID NAAT NEGATIVE (NEGATIVE)
[2023-01-26 13:31] VITALS: BMI 35.1
[2023-01-26] MEDS: TRILEPTAL PO SCH ×2 (15:19→20:37)
[2023-01-26] MEDS: TIAGABINE 4 MG PO SCH ×2 (15:20→20:35)
[2023-01-26] MEDS: CLORAZEPATE DIPOTASSIUM 7.5 MG PO SCH ×2 (15:20→20:40)
[2023-01-26] MEDS ORDERED: ADDITIVE ONLY IV SCH (17:00)
[2023-01-26] MEDS ORDERED: POTASSIUM CHLORIDE 10 MEQ VIAL- ADDITIVE ONLY 10 MEQ in SODIUM CHLORIDE 1,000 ML IV SCH (17:00)
[2023-01-26] MEDS ORDERED: SODIUM CHLORIDE IV SCH (17:00)
[2023-01-26] MEDS ORDERED: POTASSIUM CHLORIDE IV SCH (17:00)
[2023-01-26] MEDS: MICRO-K CAP PO SCH (17:45)
[2023-01-26] MEDS: SODIUM CHLORIDE 0.9%-KCL 20 MEQ 1,000 ML IV SCH (17:46)
--- NOTE | 2023-01-26 18:55 | DI ---
EXAM: RIGHT KNEE TWO VIEW. HISTORY: Fall. FINDINGS: The bones are intact with no evidence of fracture. The medial and lateral joint compartmen ts are maintained. There is degenerative narrowing of the patellofemoral joint space. There is dege nerative spurring along the margins of the medial and lateral joint compartments and along the superi or and inferior poles of the patella. There is a 1.1 cm degenerative calcification in the soft tissu es along the anterior margin of the distal femoral metaphysis. Impression: No evidence of fracture. Degenerative remodeling of the right knee as described.
[2023-01-26] MEDS: KEPPRA PO SCH (20:37)
[2023-01-26] MEDS: FOLIC ACID PO SCH (20:37)
[2023-01-26] MEDS: CAPOTEN PO SCH (20:37)
[2023-01-27 05:25] LABS: BASOPHILS % (AUTO) 0.4 % (0.0-3.0); EOSINOPHILS % (AUTO) 0.4 % (0.0-7.0); HEMATOCRIT 39.2 % (42.0-52.0); HEMOGLOBIN 13.3 g/dl (14.0-18.0); IMMATURE GRANULOCYTE % (AUTO) 0.4 % (0.0-5.0); LYMPHOCYTES # (AUTO) 0.6 K/uL (0.60-3.4); LYMPHOCYTES % (AUTO) 20.9 (10.0-50.0); MEAN CORPUSCULAR HEMOGLOBIN 32.1 pg (27.0-31.0); MEAN CORPUSCULAR HGB CONC 33.9 (31.8-35.4); MEAN CORPUSCULAR VOLUME 94.7 fl (80.0-94.0); MONOCYTES # (AUTO) 0.5 K/uL (0.4-2.0); MONOCYTES % (AUTO) 18.1 (0-10); NEUTROPHILS # (AUTO) 1.7 K/ul (2.0-6.9); NEUTROPHILS % (AUTO) 59.8 % (42.2-75.2); PLATELET COUNT 182 10^3/uL (140-440); RDW COEFFICIENT OF VARIATION 11.8 % (11.6-14.8); RED BLOOD COUNT 4.14 10^6/ul (4.70-6.10); WHITE BLOOD COUNT 2.77 K/ul (4.2-10.2)
[2023-01-27 05:37] LABS: ALANINE AMINOTRANSFERASE 34.2 U/L (0-50); ALBUMIN 4.26 g/dL (3.5-5.0); ALKALINE PHOSPHATASE 115.3 U/L (38-126); ASPARTATE AMINO TRANSFERASE 131.5 U/L (17-59); BILIRUBIN,TOTAL 0.66 mg/dL (0.2-1.3); CALCIUM 8.04 mg/dL (8.4-10.2); CARBON DIOXIDE 23.6 mmol/L (22-30.0); CHLORIDE 101.4 mmol/L (98-107); CREATININE 1.2 mg/dL (0.60-1.10); POTASSIUM 3.89 mmol/L (3.5-5.1); SODIUM 133.5 mmol/L (134.5-145); TOTAL PROTEIN 8.51 g/dL (6.3-8.2)
[2023-01-27] MEDS: CLORAZEPATE DIPOTASSIUM 7.5 MG PO SCH ×3 (09:11→20:14)
[2023-01-27] MEDS: KEPPRA PO SCH ×2 (09:12→20:14)
[2023-01-27] MEDS: TIAGABINE 4 MG PO SCH ×3 (09:12→20:14)
[2023-01-27] MEDS: DYAZIDE PO SCH (09:13)
[2023-01-27] MEDS: MICRO-K CAP PO SCH ×2 (09:13→17:23)
[2023-01-27] MEDS: TRILEPTAL PO SCH ×3 (09:13→20:15)
[2023-01-27] MEDS: CAPOTEN PO SCH ×2 (09:14→20:15)
[2023-01-27] MEDS: LIPITOR PO SCH (09:14)
--- NOTE | 2023-01-27 10:37 | CT ---
EXAMINATION: CT CERVICAL SPINE WITHOUT CONTRAST HISTORY: Neck pain. TECHNIQUE: Computed tomography (CT) of the cervical spine was performed according to standard protoco l without intravenous contrast.2-D coronal and sagittal reformatted images were obtained from the axi al source images. Contrast Dose: None. CT Dose Reduction Techniques Performed: Yes. COMPARISON: None. FINDINGS: The C1 ring is intact. The bony neural foramen are without severe stenosis. The prevertebral soft tissues are normal. There is reversal of the normal cervical lordosis. Vertebr al body heights are maintained. Multilevel degenerative disc space narrowing is present No locked or jumped facets. The spinous proce sses are at midline. The posterior elements are without gross fracture. Scattered facet degeneration is noted. Disc spaces are maintained. The bony spinal canal is patent. No evidence of epidural hematoma. The dens is intact. Lateral masses of C1 and C2 articulate normally. Scattered uncovertebral arthritic changes are present. Regional soft tissues are without acute abnormality. No apical pneumothorax. IMPRESSION: 1. Reversal of the normal cervical lordosis. 2. Multilevel degenerative disc space narrowing. 3. No acute bony abnormality. All CT scans are performed using dose optimization techniques as appropriate to the performed exam an d include at least one of the following: Automated exposure control, adjustment of the mA and/or kV according t o size, and the use of iterative reconstruction technique.
--- NOTE | 2023-01-27 10:37 | CT ---
EXAMINATION: CT THORACIC SPINE WITHOUT CONTRAST HISTORY: Back pain. TECHNIQUE: CT of the thoracic spine was performed according to standard protocol without intravenous contrast. Sagittal and coronal reformatted images were obtained using the data from the axial images . Contrast Dose: None. CT Dose Reduction Techniques Performed: Yes. COMPARISON: None. FINDINGS: There is straightening of the thoracic spine. Multilevel degenerative disc space narrowing is noted. No fracture, subluxation or acute bony abnormality. No significant canal or foraminal st enosis. No paraspinal lesion. IMPRESSION: 1. Unremarkable CT scan of the thoracic spine. All CT scans are performed using dose optimization techniques as appropriate to the performed exam an d include at least one of the following: Automated exposure control, adjustment of the mA and/or kV according t o size, and the use of iterative reconstruction technique.
--- NOTE | 2023-01-27 10:39 | CT ---
EXAMINATION: CT LUMBAR SPINE WITHOUT CONTRAST HISTORY: Back pain. TECHNIQUE: Computed tomography (CT) of the lumbar spine was performed according to standard protocol without intravenous contrast. Contrast Dose: None. CT Dose Reduction Techniques Performed: Yes. COMPARISON: None. FINDINGS: Five lumbar type vertebral bodies. Degenerative disc space narrowing and vacuum disc phenomenon at L2-L3. No fracture, subluxation or acute bony abnormality. No herniated disc or significant canal or foraminal stenosis. No paraspinal lesion. IMPRESSION: 1. No acute findings. All CT scans are performed using dose optimization techniques as appropriate to the performed exam an d include at least one of the following: Automated exposure control, adjustment of the mA and/or kV according t o size, and the use of iterative reconstruction technique.
--- NOTE | 2023-01-27 15:42 | RS.PTINEVL ---
Subjective - Patient information Date of Evaluation: 01/27/23 Date of Arrival on Unit: 01/26/23 Admitted From:: Home Diagnosis: falls, acute bronchitis, acute hypokalemia Usual Living Arrangement: With Parent Living Arrangement Comments: lives with elderly parents. Home Environment: House, Stairs (few), Rail Medical History: Hypertension, Arthritis, Cancer (brain tumor) Medical History Comments:: seizures, measles LATEX ALLERGY?: No Surgical History Comments:: craniotomy Medications: see chart Subjective Information/ Patient Comments:: pt states that his feet are sore from falls. (pt has open area R dorsum of foot). pt and father state that their plan is for pt to go home if he is stronger. - Level of function Abilities prior to this admission: prior to illness pt was amb independently without AD. pt had suffered 3 falls in 24 hours prior to admit. Current Level of Function: Partially Dependent Current Equipment Used at Home: shower chair, bedside commode, walker, rollator, wheelchair. Pain Assessement - Location B knees Description: Aching Pain Behavior: Facial Grimacing Pain Aggravating Factors: Changing Position, Standing, Walking Pain Alleviating Factors: Inactivity Interventions - Objective Patient Orientation: Person, Place, Situation Current Interventions: IV's, Telemetry Observation: pt with open areas B knees, R dorsum of foot, forehead, UE. Range of Motion - ROM Right Upper Extremity AROM: WFL's Left Upper Extremity AROM: Slight limitation (limited L shld ROM) Right Lower Extremity AROM: WFL's Left Lower Extremity AROM: WFL's Muscle Strength - Muscle Strength Right Upper Extremity Strength: Mild Weakness (grossly 4/5) Left Upper Extremity Strength: Mild Weakness (shld flex 3-/5, elbow flex/ext 4/5) Right Lower Extremity Strength: Mild Weakness (hip flex 4-/5, knee flex/ext 4/5, ankle DF/PF 4/5) Left Lower Extremity Strength: Mild Weakness (hip flex 4-/5, knee flex/ext 4/5, ankle DF/PF 4/5) Sensation - Sensation Right Upper Extremity Sensation: Intact/Normal Left Upper Extremity Sensation: Intact/Normal Right Lower Extremity Sensation: Intact/Normal Left Lower Extremity Sensation: Intact/Normal Palpation Palpation Findings: Tenderness (B knees) Balance - Sitting Balance and Reactions Static Sitting Balance: Fair Dynamic Sitting Balance: Poor Sitting Equilibrium Reactions: Delayed Left, Delayed Right Sitting Protective Reactions: Delayed Left, Delayed Right - Standing Balance and Reactions Static Standing Balance: Poor Dynamic Standing Balance: Poor Standing Equilibrium Reactions: Delayed Left, Delayed Right Standing Protective Reactions: Delayed Left, Delayed Right Functional Mobility - Bed Mobility Rolling R/L: Min Assist Sit to Supine: Min Assist, Mod Assist, 2 person assist - Transfers Sit to Stand: Min Assist, Mod Assist, 2 person assist Stand to Sit: Min Assist, 2 person assist - Safety Awareness Safety Awareness: Fair LITA INDEX SCORE: n/a Ambulation - Ambulation Assistive Device Used: Rolling Walker Orthotic/Prosthetic Device: No Distance: 15ft x 2 Assistance needed with Ambulation: Min Assist, 2 person assist Gait Deviations: Wide Based gait, Shuffling gait, Forward posture, Short stride, Deviates from path Factors Affecting Ambulation: Decreased Balance, Pain, Weakness, Decreased Coordination, Decreased Safety, Cognitive Status, Limited Endurance Treatment time - Time with patient Length of Evaluation: 21 Total treatment time: 29 Patient Education - Education Patient Education: Activity Modification, Education of Plan of Care Teaching Recipient: Patient Teaching Methods: Discussion Comments: discussion regarding POC and dc planning Assessment - Assessment Problem List:: Decreased level of function, Requires training/education, Decreased safety/Risk of falls, Weakness, Pain limits previous level of function, Cognitive status limits abilities Rehab Potential: Good Further Therapy Indicated?: Yes Candidate for Swing Bed for Therapy Services?: Feel pt may be a candidate for swing bed services for PT. Evaluation Complexity: HISTORY: Medium, EXAM OF BODY SYSTEMS: Medium, CLINICAL PRESENTATION: Medium, CLINICAL DECISION MAKING: Medium Patient's Goal(s): Be able to walk better Short Term Goals GOAL #1: Rolling independently with bedrails. Goal to be met by: 01/31/23 GOAL #2: Sup to/from sit min x 1 Goal to be met by: 01/31/23 GOAL #3: Sit to/from stand min x 1 Goal to be met by: 01/31/23 GOAL #4: pt amb 50ft with rwx min x 1 Goal to be met by: 01/31/23 GOAL #5: Improve BLE strength 4 to 4+/5 Goal to be met by: 01/31/23 Procurement Cost Coordinator Goals GOAL #1: pt transfer sup to/from sit to/from stand CGA Goal to be met by: 02/02/23 GOAL #2: pt amb with rwx 120ft with CGA x 1 Goal to be met by: 02/02/23 GOAL #3: Improve dyn stand balance fair Goal to be met by: 02/02/23 Plan Plan of Care: Therapeutic EX, Therapeutic Activity Other:: gait training Frequency of Treatment: 1-2 X day, as tolerated Duration of Treatment: 5-7 days Anticipated Discharge Destination: home vs swing Treatment Diagnosis (ICD 10 Codes): impaired balance R 26.81. gait difficulty R 26.2. weakness M62.81. falls R 29.6 Has the Physician been added for Co-signature?: Yes
[2023-01-27] MEDS: SODIUM CHLORIDE 0.9%-KCL 20 MEQ 1,000 ML IV SCH (18:33)
[2023-01-27] MEDS: FOLIC ACID PO SCH (20:14)
[2023-01-28 05:12] LABS: BASOPHILS % (AUTO) 0.5 % (0.0-3.0); EOSINOPHILS % (AUTO) 1.4 % (0.0-7.0); HEMATOCRIT 37.4 % (42.0-52.0); HEMOGLOBIN 12.7 g/dl (14.0-18.0); IMMATURE GRANULOCYTE % (AUTO) 0.5 % (0.0-5.0); LYMPHOCYTES # (AUTO) 0.5 K/uL (0.60-3.4); LYMPHOCYTES % (AUTO) 23.7 (10.0-50.0); MEAN CORPUSCULAR HEMOGLOBIN 32.5 pg (27.0-31.0); MEAN CORPUSCULAR VOLUME 95.7 fl (80.0-94.0); MONOCYTES # (AUTO) 0.4 K/uL (0.4-2.0); NEUTROPHILS # (AUTO) 1.2 K/ul (2.0-6.9); NEUTROPHILS % (AUTO) 53.9 % (42.2-75.2); PLATELET COUNT 178 10^3/uL (140-440); RDW COEFFICIENT OF VARIATION 11.9 % (11.6-14.8); RED BLOOD COUNT 3.91 10^6/ul (4.70-6.10); WHITE BLOOD COUNT 2.15 K/ul (4.2-10.2)
[2023-01-28 05:25] LABS: ALANINE AMINOTRANSFERASE 33.1 U/L (0-50); ALBUMIN 3.86 g/dL (3.5-5.0); ALKALINE PHOSPHATASE 102.9 U/L (38-126); ASPARTATE AMINO TRANSFERASE 111.9 U/L (17-59); BILIRUBIN,TOTAL 0.5 mg/dL (0.2-1.3); BLOOD UREA NITROGEN 22.8 mg/dL (9-20); CALCIUM 8.08 mg/dL (8.4-10.2); CARBON DIOXIDE 26.8 mmol/L (22-30.0); CHLORIDE 100.8 mmol/L (98-107); CREATININE 1.16 mg/dL (0.60-1.10); GLUCOSE 106.5 mg/dL (74-106); POTASSIUM 3.5 mmol/L (3.5-5.1); SODIUM 135.7 mmol/L (134.5-145); TOTAL PROTEIN 8.11 g/dL (6.3-8.2)
[2023-01-28] MEDS: TIAGABINE 4 MG PO SCH ×3 (08:13→20:14)
[2023-01-28] MEDS: CLORAZEPATE DIPOTASSIUM 7.5 MG PO SCH ×3 (08:13→20:13)
[2023-01-28] MEDS: TRILEPTAL PO SCH ×3 (08:14→20:15)
[2023-01-28] MEDS: MICRO-K CAP PO SCH ×2 (08:15→16:41)
[2023-01-28] MEDS: LIPITOR PO SCH (08:15)
[2023-01-28] MEDS: DYAZIDE PO SCH (08:15)
[2023-01-28] MEDS: KEPPRA PO SCH ×2 (08:16→20:15)
[2023-01-28] MEDS: CAPOTEN PO SCH ×2 (08:16→20:15)
--- NOTE | 2023-01-28 11:12 | RS.OTINEVL ---
Subjective - Patient information Date of Evaluation: 01/28/23 Date of Arrival on Unit: 01/26/23 Admitted From:: Home Diagnosis: Weakness, gait disturbance, PRECAUTIONS: Falls, weakness Usual Living Arrangement: With Parent Living Arrangement Comments: lives with elderly parents. Home Environment: House, Stairs (few), Rail Medical History: Hypertension, Arthritis, Cancer (brain tumor) Medical History Comments:: seizures, measles LATEX ALLERGY?: No Surgical History Comments:: craniotomy Medications: see chart Subjective Information/ Patient Comments:: "I fell at home. I scraped my head and knees." "I don't have my socks on." - Level of function Prior to this admission, the patient could do the following:: Independent Selfcare, Independent ADL's, Independent Ambulation, Participated in Social Activities Outside home Abilities prior to this admission: Dad reports the patient was independent with dressing, bathing, and walking at home. Current Level of Function: Partially Dependent Comments: Pt appears weak and would benefit from skilled OT. Current Equipment Used at Home: shower chair, bedside commode, walker, rollator, wheelchair. Pain Assessment - Pain Pain Score: 0 Interventions - Objective Patient Orientation: Person, Place, Situation Current Interventions: IV's Observation: Pt requires min A to mod A to scoot from supine to sit EOB. Pt is min A to for sit to stand and requires verbal cues to push with hand on the bed to stand up. Pt is Min A to ambulate with RW to door and back. Pt plopped in the chair and did not reach back to sit down. Interventions - ROM Right Upper Extremity AROM: WFL's Left Upper Extremity AROM: WFL's - Strength Right Upper Extremity Strength: Mild Weakness Left Upper Extremity Strength: Mild Weakness - Sensation Right Upper Extremity Sensation: Intact/Normal Left Upper Extremity Sensation: Intact/Normal Balance - Sitting Balance Static Sitting Balance: Good Dynamic Sitting Balance: Good - Standing Balance Static Standing Balance: Fair Dynamic Standing Balance: Fair ADL Skills - Self Feeding Self Feeding: Independent - Grooming Grooming: Min Assist Grooming Set-up: Standing - Dressing Dressing UE: CGA Dressing LE: Min Assist - Toilet Management Toilet Hygiene: CGA Toilet Clothing Management: CGA Functional Mobility - Bed Mobility Scooting: Min Assist Supine to Sit: Mod Assist - Transfers Sit to Stand: Min Assist, Verbal Cues Stand to Sit: Min Assist, Verbal Cues Stand Pivot Transfers: Min Assist, Verbal Cues - Ambulation Weight Bearing Status: FWB Assistive Device Used: Rolling Walker Assistance needed with Ambulation: Min Assist, Verbal Cues, Tactile Cues - Safety Awareness Safety Awareness: Fair LITA INDEX SCORE: . Additional Treatment Performed - Time with patient Length of Evaluation: 20 Total treatment time: 22 Activities Do you enjoy playing games?: No Would you be interested in leaving your room for activities?: Yes Would you enjoy group activities?: Yes Do you have difficulty with your vision?: No What types of things do you enjoy doing? Any Hobbies?: Basketball games - [place] Patient Interests:: Watching Television, Puzzles/Games, Visiting/Socializing Patient Education Patient Education: Home Exercise Program, Education of Plan of Care Teaching Recipient: Patient Teaching Methods: Discussion Assessment Problem List:: Decreased level of function, Requires training/education, Decreased safety/Risk of falls, Weakness Rehab Potential: Good Further Therapy Indicated?: Yes Evaluation Complexity: HISTORY: Medium, EXAM OF BODY SYSTEMS: Medium, CLINICAL DECISION MAKING: Medium Patient's Goal(s): To be able to take care of his self at home. To lessen his falls. Short Term Goals - Goals GOAL 1: Pt to be CGA for brushing teeth standing at sink. Goal to be met by: 02/04/23 GOAL 2: Pt to increase dyn std. bal. to Fair+. Goal to be met by: 02/04/23 GOAL 3: Pt to be (I) with dressing (UB/LB) himself. Goal to be met by: 02/04/23 GOAL 4: Pt to increase BUE strength to 4/5. Goal to be met by: 02/04/23 [facility] Goals GOAL 1: Pt to be (I) with ADLS. Goal to be met by: 02/09/23 GOAL 2: Pt to increase dyn. std. bal. to G-. Goal to be met by: 02/09/23 GOAL 3: Pt to increase BUE strength to 4+/5. Goal to be met by: 02/09/23 Plan Plan of Care: Therapeutic EX, Neuromuscular Re-Educ, Therapeutic Activity, Self- Care/Home Management Frequency of Treatment: 1-2 X day, as tolerated Duration of Treatment: 10 days. Anticipated Discharge Destination: Home Treatment Diagnosis (ICD 10 Codes): Weakness R53.1, Z74.1 Need for assistance with personal care Has the Physician been added for Co-signature?: Yes
[2023-01-28] MEDS: ALBUTEROL 0.083% NEB NEB SCH (19:15)
[2023-01-28] MEDS: FOLIC ACID PO SCH (20:15)
[2023-01-28 21:48] VITALS: TEMP 97.9
[2023-01-29] MEDS: ALBUTEROL 0.083% NEB NEB SCH (04:45)
[2023-01-29 05:30] VITALS: BP 114/79
[2023-01-29] MEDS: CLORAZEPATE DIPOTASSIUM 7.5 MG PO SCH (08:14)
[2023-01-29] MEDS: TIAGABINE 4 MG PO SCH (08:15)
[2023-01-29] MEDS: TRILEPTAL PO SCH (08:15)
[2023-01-29] MEDS: MICRO-K CAP PO SCH (08:16)
[2023-01-29] MEDS: KEPPRA PO SCH (08:16)
[2023-01-29] MEDS: CAPOTEN PO SCH (08:16)
[2023-01-29] MEDS: DYAZIDE PO SCH (08:17)
[2023-01-29] MEDS: LIPITOR PO SCH (08:17)
--- NOTE | 2023-01-29 09:39 | DI ---
EXAM: CHEST RADIOGRAPH TECHNIQUE: Two views. Frontal and lateral. HISTORY: Wheezing and congestion. COMPARISON: 01/25/2023. . FINDINGS: The lungs are clear. The heart size is normal. There is no pleural effusion. There is no pneumothorax. IMPRESSION: 1. Normal chest radiographs.
== END 2023-01-29 09:51 | disposition swing bed (61) | DRG 948 ==
LOC: ED 08:39 → MEDSURG A 12:04
PROVIDERS: ADMIT Family Medicine; ATTEND Family Medicine
DX: S00.93XA Contusion of unspecified part of head, initial encounter; J20.9 Acute bronchitis, unspecified; W19.XXXA Unspecified fall, initial encounter; Y93.9 Activity, unspecified; Y92.009 Unspecified place in unspecified non-institutional (private) residence as the place of occurrence of the external cause; E87.6 Hypokalemia; Z79.1 Long term (current) use of non-steroidal anti-inflammatories (NSAID); Z20.822 Contact with and (suspected) exposure to COVID-19; S80.212A Abrasion, left knee, initial encounter; D70.1 Agranulocytosis secondary to cancer chemotherapy; E78.5 Hyperlipidemia, unspecified; C71.1 Malignant neoplasm of frontal lobe; Z74.1 Need for assistance with personal care; Z79.899 Other long term (current) drug therapy; R29.6 Repeated falls; S80.211A Abrasion, right knee, initial encounter; R46.0 Very low level of personal hygiene; E66.9 Obesity, unspecified; G40.909 Epilepsy, unspecified, not intractable, without status epilepticus; I10 Essential (primary) hypertension; R74.8 Abnormal levels of other serum enzymes; R73.09 Other abnormal glucose; Z68.35 Body mass index [BMI] 35.0-35.9, adult; R53.1 Weakness; R50.81 Fever presenting with conditions classified elsewhere; Z51.81 Encounter for therapeutic drug level monitoring; Y99.9 Unspecified external cause status; R26.81 Unsteadiness on feet